=== PATIENT | male | born 1990 | race African-American/Black ===

== ENCOUNTER 2018-07-19 16:13 | Emergency (ER) | payer SELFPAY ==
[~2018-07-19] VITALS: Ht 177.8 cm; Wt 90.0 kg
[2018-07-19] MEDS ORDERED: KETOROLAC 60MG/2ML VIAL IM STA (16:55)
[2018-07-19] MEDS ORDERED: LIDOCAINE HCL/PF 1% 10 MG/ML 5ML VIAL IJ ONE (18:00)
[2018-07-19 18:41] VITALS: BP 127/65
== END 2018-07-19 18:40 | disposition home or self-care (01) ==
LOC: ER 16:13
DX: S63.287A Dislocation of proximal interphalangeal joint of left little finger, initial encounter (principal); W21.05XA Struck by basketball, initial encounter; Y93.67 Activity, basketball; Y92.89 Other specified places as the place of occurrence of the external cause
CPT/HCPCS: 26770; 73130; 73140; 96372; 99284; J1885; J3490